=== PATIENT | female | born 1975 | race Caucasian/White ===

== ENCOUNTER 2017-05-02 01:15 | Emergency (ER) | payer OTHER ==
--- NOTE | 2017-05-02 01:42 | ED.PDOC ---
History of Present Illness - General Chief Complaint: Abdominal Pain Stated Complaint: lower abdomen pain Time Seen by Provider: 05/02/17 01:42 Information Source: patient Exam Limitations: no limitations - History of Present Illness Initial Comments: Viola Patricia 42 y/o female with history of opoid induced chronic constipation and chronic abdominal pain for the last 1 1/2 months as well as history of ovarian cancer diagnosed in november 2016 underwent chemotherapy brought by with sharp constant abdominal pain worse tonight has small bowel movements the last few days.Had seen gi specialist for her chronic constipation and had underwent gi workups and had been tried on new medications for constipation. Had recent ct abdomen 1 1/2 weeks ago. Abdominal Pain Onset Location: generalized abdomen Pain Radiation: no radiation Quality: cramping, sharpness Timing/Duration: other - 45 days Improving Factors: nothing Worsening Factors: eating Associated Symptoms: denies symptoms Review of Systems - Review of Systems Constitutional: States: no symptoms reported EENTM: States: no symptoms reported Respiratory: States: no symptoms reported Cardiology: States: no symptoms reported Gastrointestinal/Abdominal: States: see HPI, abdominal pain, constipation Genitourinary: States: no symptoms reported Musculoskeletal: States: no symptoms reported Skin: States: no symptoms reported Neurological: States: no symptoms reported Endocrine: States: no symptoms reported Hematologic/Lymphatic: States: no symptoms reported Past Medical History (General) - Patient Medical History Hx Cancer: Yes - ovarian ca-stage iv s/p chemotherapy Surgical History: other - hysterectomy - Social History Hx Tobacco Use: No Hx Chewing Tobacco Use: No Hx Alcohol Use: No Hx Substance Use: No Hx Physical Abuse: No Hx Emotional Abuse: No Hx Suspected Abuse: No - Female History Patient is a Female of Child Bearing Age (10 -59 yrs old): No Patient : No - hysterectomy Family Medical History - Family History Father Hx Family Diabetes: Yes - parents Mother Living Status: Still Living Hx Family Diabetes: Yes Physical Exam - Physical Exam General Appearance: Alert, Anxious, No apparent distress Eyes, Ears, Nose, Throat Exam: PERRL/EOMI, normal ENT inspection, TMs normal, pharynx normal Neck: non-tender, full range of motion, supple, normal inspection Respiratory: chest non-tender, lungs clear, normal breath sounds Cardiovascular/Chest: normal peripheral pulses, regular rate, rhythm, no edema, no murmur Peripheral Pulses: No deficit Gastrointestinal/Abdominal: normal bowel sounds, soft, distended - slightly, tenderness Rectal Exam: normal rectal tone, other - hard stool /rectal vault disimpacted Back Exam: normal inspection, no CVA tenderness, no vertebral tenderness Extremity: normal range of motion, non-tender Neurologic: no motor/sensory deficits, alert, oriented x 3 Skin Exam: normal color, warm/dry Lymphatic: no adenopathy Progress - Progress Progress: 05/02/17 02:36 Vital Signs - 8 hr 05/02/17 01:27 Temperature 98.3 F Pulse Rate [ 89 monitor] Respiratory 16 Rate Blood Pressure 125/84 [Right Arm] O2 Sat by Pulse 98 Oximetry - Results/Orders Results/Orders: Vital Signs - 8 hr 05/02/17 01:27 Temperature 98.3 F Pulse Rate [ 89 monitor] Respiratory 16 Rate Blood Pressure 125/84 [Right Arm] O2 Sat by Pulse 98 Oximetry 05/02/17 01:44 IV Care:Saline Lock per Protoc QSHIFT Laboratory Results WBC 3.0 K/mm3 (4.8-10.8) L 05/02/17 01:55 RBC 3.14 M/mm3 (4.20-5.40) L 05/02/17 01:55 Hgb 9.4 gm/dL (12.0-16.0) L 05/02/17 01:55 Hct 28.0 % (36.0-47.0) L 05/02/17 01:55 MCV 89.1 fl (81.0-99.0) 05/02/17 01:55 MCH 29.9 pg (27.0-31.0) 05/02/17 01:55 MCHC 33.7 g/dL (33.0-37.0) 05/02/17 01:55 RDW 15.4 % (11.5-14.5) H 05/02/17 01:55 Plt Count 175 K/mm3 (130-400) 05/02/17 01:55 MPV 7.3 fl (7.40-10.4) L 05/02/17 01:55 Absolute Neuts (auto) 2.10 K/uL (1.8-6.8) 05/02/17 01:55 Absolute Lymphs (auto) 0.30 K/uL (1.0-3.4) L 05/02/17 01:55 Absolute Monos (auto) 0.40 K/uL (0.2-0.8) 05/02/17 01:55 Absolute Eos (auto) 0.10 K/uL (0.0-0.4) 05/02/17 01:55 Absolute Basos (auto) 0.00 K/uL (0.0-0.1) 05/02/17 01:55 Neutrophils % 71.0 % (42.0-78.0) 05/02/17 01:55 Lymphocytes % 11.6 % (20.0-50.0) L 05/02/17 01:55 Monocytes % 12.0 % (2.0-9.0) H 05/02/17 01:55 Eosinophils % 5.0 % (1.0-5.0) 05/02/17 01:55 Basophils % 0.4 % (0.0-2.0) 05/02/17 01:55 Sodium 136 mmol/L (135-145) 05/02/17 01:55 Potassium 3.5 mmol/L (3.6-5.0) L 05/02/17 01:55 Chloride 100 mmol/L (101-111) L 05/02/17 01:55 Carbon Dioxide 27 mmol/L (21-31) 05/02/17 01:55 Anion Gap 12.5 (12-18) 05/02/17 01:55 BUN 9 mg/dL (7-18) 05/02/17 01:55 Creatinine 0.51 mg/dL (0.6-1.3) L 05/02/17 01:55 BUN/Creatinine Ratio 17.6 (10-20) 05/02/17 01:55 Random Glucose 93 mg/dL (70-105) 05/02/17 01:55 Serum Osmolality 270.3 mOsm/L (275-295) L 05/02/17 01:55 Calcium 8.7 mg/dL (8.4-10.2) 05/02/17 01:55 Total Bilirubin 0.6 mg/dL (0.2-1.0) 05/02/17 01:55 AST 17 IU/L (10-42) 05/02/17 01:55 ALT 12 IU/L (10-60) 05/02/17 01:55 Alkaline Phosphatase 63 IU/L (42-121) 05/02/17 01:55 Serum Total Protein 6.5 gm/dL (6.4-8.2) 05/02/17 01:55 Albumin 3.3 g/dl (3.2-5.5) 05/02/17 01:55 Globulin 3.2 gm/dL (2.3-3.5) 05/02/17 01:55 Albumin/Globulin Ratio 1.0 (1.1-1.9) L 05/02/17 01:55 Lipase 15 U/L (22-51) L 05/02/17 01:55 Urine Color Yellow (Yellow) 05/02/17 02:38 Urine Appearance Clear (Clear) 05/02/17 02:38 Urine pH 6.5 (4.5-7.8) 05/02/17 02:38 Ur Specific [place] 1.010 (1.005-1.030) 05/02/17 02:38 Urine Protein Negative mg/dL 05/02/17 02:38 Urine Glucose (UA) Negative mg/dL (Negative) 05/02/17 02:38 Urine Ketones 40 mg/dL (NEGATIVE) H 05/02/17 02:38 Urine Blood Negative (Negative) 05/02/17 02:38 Urine Nitrite Negative 05/02/17 02:38 Urine Bilirubin Negative (NEGATIVE) 05/02/17 02:38 Urine Urobilinogen 0.2 mg/dL (0.2-1.0) 05/02/17 02:38 Ur Leukocyte Esterase Negative (Negative) 05/02/17 02:38 Urine RBC 0 /hpf 05/02/17 02:38 Urine WBC 0 /hpf 05/02/17 02:38 Ur Epithelial Cells 0 /hpf 05/02/17 02:38 Urine Bacteria 0 05/02/17 02:38 Urine Opiates Screen Positive ng/mL (2000) H 05/02/17 02:38 Urine Barbiturates Negative ng/mL (200) 05/02/17 02:38 Ur Phencyclidine Scrn Negative ng/mL (25) 05/02/17 02:38 U Amphetamin/Meth Scrn Negative ng/mL (1000) 05/02/17 02:38 U Benzodiazepines Scrn Negative ng/mL (200) 05/02/17 02:38 U Cocaine Metab Screen Negative ng/mL (300) 05/02/17 02:38 U Cannabinoids Screen Negative ng/mL (50) 05/02/17 02:38 - EKG/XRAY/CT XRAY: AAS-large colonic stool;no other abnormalities/radiologist Departure - Departure Clinical Impression: Constipation due to pain medication, History of ovarian cancer Abdominal pain Qualifiers: Abdominal location: generalized Qualified Code(s): R10.84 - Generalized abdominal pain Time of Disposition: 03:28 Disposition: Discharge to Home or Self Care Condition: Fair Departure Forms: ED Discharge - Pt. Copy, Patient Portal Self Enrollment Instructions: DI for Abdominal Pain-Adult Prescriptions: Ketorolac Tromethamine [Toradol Tabs] 10 mg PO BID PRN #7 tab PRN Reason: Pain Home Medications: Ambulatory Orders Apixaban [Eliquis] 5 mg PO BID 05/02/17 Cyanocobalamin [Vitamin B12] 100 mcg PO DAILY 05/02/17 Ferrous Sulfate [Iron Supplement Childrens] 15 mg PO DAILY 05/02/17 Ketorolac Tromethamine [Toradol Tabs] 10 mg PO BID PRN #7 tab 05/02/17 Linaclotide [Linzess] 290 mcg PO DAILY 05/02/17 Morphine Sulfate [Morphine Sulfate ER] 30 mg PO Q4HR 05/02/17 Multiple Vitamins W/ Minerals [Multi For Her] 1 cap PO DAILY 05/02/17 Ondansetron [Zofran Odt] 8 mg PO Q6HR 05/02/17 Pyridoxine HCl [Vitamin B6] 100 mg PO DAILY 05/02/17 Additional Instructions: NEED TO CALL UP YOUR GI SPECIALIST IN AM
[2017-05-02] MEDS ORDERED: LACTATED RINGERS 1,000 ML IVS ONE (01:44)
[2017-05-02 01:47] VITALS: TEMP 98.3
[2017-05-02] MEDS ORDERED: KETOROLAC TROMETHAMINE INJ 30 MG/ML VIAL IV ONE (02:51)
[2017-05-02] MEDS ORDERED: HYDROmorphone HCL INJ 2 MG/ML VIAL IV ONE (02:51)
--- NOTE | 2017-05-02 03:02 | RAD ---
Procedure: XR ABDOMEN 2 VIEWS SUPINE ERECT Exam Date: 05/02/2017 Ordering Provider: Yemi Swanson Clinical Indication: Abdominal pain Comparison: None Findings: Surgical clips projecting over the lower abdomen and pelvis. There is no small or large bowel distention. Large colonic stool burden. There is no pneumoperitoneum. There are no suspicious calcifications. There is no acute skeletal abnormality. Impression: 1. No acute findings. 2. Large colonic stool burden. Electronically signed by: Jose Manuel Priest MD 05/02/2017 3:02 AM CDT
--- NOTE | 2017-05-02 03:04 | RAD ---
Procedure: XR CHEST 1 VIEW Exam Date: 05/02/2017 Ordering Provider: Yemi Swanson Clinical Indication: Abdominal pain Comparison: None Findings: Left PICC extends to the mid SVC. Cardiac silhouette: Normal Pulmonary vasculature : Normal Mediastinal contour: Normal Aortic contour: Normal Focal lung consolidation: None Pleural effusion: None Pneumothorax: None Acute bony or soft tissue abnormality: None Impression: 1. No acute abnormalities in the chest. Electronically signed by: Jose Manuel Priest MD 05/02/2017 3:04 AM CDT
[2017-05-02] MEDS ORDERED: HEPARIN SODIUM 100 U/ML 5 ML SYG IV ONE (03:38)
[2017-05-02] MEDS ORDERED: PANTOPRAZOLE SODIUM TAB 40 MG PO ONE (03:39)
[2017-05-02 04:27] VITALS: BP 119/79; O2SAT 96
== END 2017-05-02 04:10 | disposition home or self-care (01) ==
LOC: ER 01:15
DX: R10.84 Generalized abdominal pain (principal); K59.03 Drug induced constipation; Z85.43 Personal history of malignant neoplasm of ovary; Z79.899 Other long term (current) drug therapy
CPT/HCPCS: 36415; 71010; 74010; 80053; 80307; 81001; 83690; 85025; J1170; J1642; J1885; J7120